=== PATIENT | female | born 1980 | race Asian ===

== ENCOUNTER 2021-02-18 11:00 | Emergency (ER) | payer MEDICAID ==
[~2021-02-18] VITALS: Ht 162.6 cm; Wt 79.4 kg
[2021-02-18 11:00] VITALS: BP_SYST 124
--- NOTE | 2021-02-18 11:00 | NUR ---
Patient triaged and placed in waiting room. VSS and patient appears in no acute distress at this time. Accompanied by FAMILY, awaiting available bed, and MD notified of need for MSE.
--- NOTE | 2021-02-18 11:21 | NUR ---
BROUGHT BACK TO BED #6 VIA WHEELCHAIR, PLACED IN BED AND REPORT GIVEN TO ANETA
--- NOTE | 2021-02-18 11:54 | NUR ---
DR SHANNON IN TO ASSESS/ PT CALM, ALERT, NO DISTRESS
[2021-02-18] MEDS ORDERED: KETOROLAC TROMETHAMINE 60 MG/2 ML VIAL IM ONE (12:00)
--- NOTE | 2021-02-18 13:35 | NUR ---
ULTRASOUND COMPLETED, NO DISTRESS. TOLERATED WELL
--- NOTE | 2021-02-18 14:00 | NUR ---
REPOSITIONE FOR COMFORT, PAIN TOLERABLE, RESP UNLABORED
--- NOTE | 2021-02-18 14:08 | NUR ---
DR SHANNON IN TO REASSESS
[2021-02-18] MEDS ORDERED: MORPHINE 4 MG INJ. 4 MG/ML VIAL IM ONE (14:15)
[2021-02-18] MEDS ORDERED: DIPHENHYDRAMINE INJ 50 MG/ML VIAL IM ONE (14:15)
--- NOTE | 2021-02-18 14:19 | NUR ---
medicated as ordered, repositioned for comfort
[2021-02-18 14:38] VITALS: BP_SYST 141
--- NOTE | 2021-02-18 14:39 | NUR ---
Patient given written and verbal discharge instructions and verbalizes understanding. ER MD discussed with patient the results and treatment provided. Patient in stable condition. ID arm band removed. Patient educated on pain management and to follow up with PMD. Pain Scale 2/10 Opportunity for questions provided and answered.
== END 2021-02-18 14:39 | disposition home or self-care (01) ==
LOC: SED 11:00
DX: G89.29 Other chronic pain (principal); M25.562 Pain in left knee; Z88.5 Allergy status to narcotic agent
CPT/HCPCS: 93971; 96372; 99284; J1200; J1885; J2270